=== PATIENT | male | born 1970 | race Caucasian/White ===

== ENCOUNTER 2018-09-01 10:00 | Inpatient (IN) | payer OTHER ==
[2018-09-01 10:38] VITALS: BMI 34.0
--- NOTE | 2018-09-01 12:14 | HP ---
COWS - Scale Resting Pulse: 0= [place] 80 or Below Sweatin= Chills/Flushing Restless Observation: 0= Sits Still Pupil Size: 0= Normal to Room Light Bone or Joint Aches: 2= Severe Diffuse Aches Runny Nose/ Eye Tearin= Nasal Congestion GI Upset > 30mins: 1= Stomach Cramp Tremor Observation: 2= Slight Tremor Visible Yawning Observation: 1= 1-2x During Session Anxiety or Irritability: 2=Irritable/Anxious Goose Flesh Skin: 0=Smooth Skin COWS Score: 10 CIWA Score Nausea/Vomitin-Mild Nausea/No Vomiting Muscle Tremors: 3 Anxiety: 4-Mod. Anxious/Guarded Agitation: 3 Paroxysmal Sweats: No Perspiration Orientation: 1-Uncertain about Date Tacttile Disturbances: 0-None Auditory Disturbances: 0-None Visual Disturbances: 0-None Headache: 1-Very Mild CIWA-Ar Total Score: 13 - Admission Criteria [facility]ASAS Guidelines: Admission for Medically Managed Detox: Requires at least one of the followin. CIWA greater than 12 2. Seizures within the past 24 hours 3. Delirium tremens within the past 24 hours 4. Hallucinations within the past 24 hours 5. Acute intervention needed for co occurring medical disorder 6. Acute intervention needed for co occurring psychiatric disorder 7. Severe withdrawal that cannot be handled at a lower level of care (continued vomiting, continued diarrhea, abnormal vital signs) requiring intravenous medication and/or fluids 8. Patient presents the following: CIWA greater than 12 Admission Criteria Met: Admission criteria met Admission ROS [facility] Chief Complaint: I gotta get off this shit, gotta get clean Allergies/Adverse Reactions: Allergies Allergy/AdvReac Type Severity Reaction Status Date / Time Fish Containing Products Allergy Intermediate Swelling Verified 09/01/18 12:16 History of Present Illness: 48 yo gentleman here for detox from opiates and alcohol - denies seizures but states he has had 'alot' of overdoses and black outs, states he was in a methadone program as well as suboxone in the past - was jailed and taken off the program at various times. Patient making inappropriate comments - patient redirected multiple times. Restless, easily agitated. Exam Limitations: Clinical Condition - Ebola screening Have you traveled outside of the country in the last 21 days: No (N) Have you had contact with anyone from an Ebola affected area: No Have you been sick,other than usual withdrawal symptoms: No Do you have a fever: No - Review of Systems Constitutional: Loss of Appetite, Night Sweats, Changes in sleep EENT: reports: Nose Congestion Respiratory: reports: No Symptoms reported Cardiac: reports: No Symptoms Reported GI: reports: Constipated : reports: Dysuria Musculoskeletal: reports: Back Pain, Muscle Pain Integumentary: reports: No Symptoms Reported Neuro: reports: Headache Endocrine: reports: No Symptoms Reported Hematology: reports: No Symptoms Reported Psychiatric: reports: Judgement Intact, Mood/Affect Appropiate, Anxious Other Systems: Reviewed and Negative Patient History - Patient Medical History Hx Asthma: No Hx Chronic Obstructive Pulmonary Disease (COPD): No Hx Cancer: No Hx Congestive Heart Failure: No Hx Hypertension: No Hx Hypercholesterolemia: No Hx Pacemaker: No HX Cerebrovascular Accident: No Hx Seizures: No Hx Diabetes: No Hx Gastrointestinal Disorders: No Hx Liver Disease: No Hx Genitourinary Disorders: No Hx Sexually Transmitted Disorders: No Hx Renal Disease (ESRD): No Hx Thyroid Disease: No Hx Human Immunodeficiency Virus (HIV): No Hx Hepatitis C: Yes (treated with interferon) Hx Depression: No Hx Suicide Attempt: No Hx Bipolar Disorder: Yes (on meds) Hx Schizophrenia: No - Patient Surgical History Hx Cholecystectomy: Yes (2016) Other Surgical History: parathyroidectomy age 17 - PPD History Previous Implant?: Yes Documented Results: Negative w/o proof Implanted On Prior R Admission?: No PPD to be Administered?: Yes - Reproductive History Patient is a Female of Child Bearing Age (11 -55 yrs old): No (male) - Smoking Cessation Smoking history: Current every day smoker Have you smoked in the past 12 months: Yes Aproximately how many cigarettes per day: 20 Hx Chewing Tobacco Use: No Initiated information on smoking cessation: Yes 'Breaking Loose' booklet given: 09/01/18 (give on floor) - Substance & Tx. History Hx Alcohol Use: No Hx Substance Use: Yes Substance Use Type: Heroin, Marijuana, Opiates Hx Substance Use Treatment: Yes (methadone program, suboxone, detox, rehab) - Substances Abused Non-Rx Methadone Route: Oral Frequency: 1-2 times per week Amount used: 50 mg Age of first use: 22 Date of Last Use: 08/31/18 Heroin Route: Injection Frequency: 3-6 times per week Amount used: 5 bags Age of first use: 21 Date of Last Use: 08/30/18 Marijuana/Hashish Route: Smoking Frequency: Daily Amount used: 3 blunts Age of first use: 13 Date of Last Use: 08/31/18 Alcohol Route: Oral Frequency: Daily Amount used: 1 PINT Age of first use: 10 Date of Last Use: 09/01/18 Family Disease History - Family Disease History Family Disease History: [place]: Mother (, ), Brother (five - (shot, suicide, cancer)), Other: Father (, 'old age'), Mother, Brother, Sister (four living, one ? reason), Son (age seven) Admission Physical Exam [facility] - Vital Signs Vital Signs: Vital Signs - 24 hr 09/01/18 10:36 Temperature 98.0 F Pulse Rate 65 Respiratory 16 Rate Blood Pressure 111/67 - Physical General Appearance: Yes: Nourished, Appropriately Dressed, Obese, Irritable, Anxious HEENTM: Yes: EOMI, Hearing grossly Normal, Normocephalic, Normal Voice, Pharynx Normal Respiratory: Yes: Normal Breath Sounds, No Respiratory Distress Neck: Yes: No masses,lesions,Nodules, Supple Breast: Yes: Breast Exam Deferred Cardiology: Yes: Regular Rhythm, Regular Rate Abdominal: Yes: Soft, Protuberent Genitourinary: Yes: Hesitency Back: Yes: Normal Inspection Musculoskeletal: Yes: full range of Motion, Gait Steady, Back pain, Muscle Pain Extremities: Yes: Normal Inspection, Normal Range of Motion, Non-Tender Neurological: Yes: Fully Oriented, Alert, Motor Strength 5/5, Normal Mood/Affect , Normal Response Integumentary: Yes: Normal Color, Warm, Track Gonzalez (both arms - no abscess noted) Lymphatic: Yes: Within Normal Limits - Diagnostic (1) Alcohol dependence with uncomplicated withdrawal Current Visit: Yes Status: Chronic (2) Opioid dependence with withdrawal Current Visit: Yes Status: Chronic (3) Nicotine dependence Current Visit: Yes Status: Chronic Qualifiers: Nicotine product type: cigarettes Substance use status: uncomplicated Qualified Code(s): F17.210 - Nicotine dependence, cigarettes, uncomplicated (4) Obesity (BMI 30-39.9) Current Visit: Yes Status: Chronic (5) Hepatitis C virus infection resolved after antiviral drug therapy Current Visit: Yes Status: Chronic Cleared for Admission [facility] - Detox or Rehab [facility] Level of Care: Medically Managed Detox Regimen/Protocol: Methadone [facility] Breath Alcohol Content Breath Alcohol Content: 0 Urine Drug Screen - Results Drug Screen Negative: No Urine Drug Screen Results: THC-Marijuana, OPI-Opiates, MTD-Methadone
[2018-09-01] MEDS ORDERED: chlordiazePOXIDE HCL 25 MG CAPSULE PO PRN (12:31)
[2018-09-01] MEDS ORDERED: MENTHOL/PHENOL 1 EACH UD MM PRN (12:31)
[2018-09-01] MEDS ORDERED: guaiFENesin/D-METHORPHAN HB 10 ML UNIT-DOSE CUPS PO PRN (12:31)
[2018-09-01] MEDS ORDERED: IBUPROFEN 400 MG TABLET (FP) PO PRN (12:31)
[2018-09-01] MEDS ORDERED: MAG HYDROX/AL HYDROX/SIMETH 30 ML UNIT-DOSE CUP PO PRN (12:31)
[2018-09-01] MEDS ORDERED: P-EPHED 60MG/TRIPROLIDI 2.5MG TABLET PO PRN (12:31)
[2018-09-01] MEDS ORDERED: MAGNESIUM HYDROX 2400MG/30ML ORAL SUSPENSION 30 ML CUP PO PRN (12:31)
[2018-09-01] MEDS ORDERED: MAGNESIUM CITRATE 300 ML BOTTLE PO PRN (12:31)
[2018-09-01] MEDS ORDERED: LOPERAMIDE HCL 2 MG CAPSULE PO PRN (12:31)
[2018-09-01] MEDS ORDERED: METHADONE HCL 10 MG TABLET (FOR DETOX USE ONLY) PO ONE ×2 (13:30→23:00)
[2018-09-01] MEDS: chlordiazePOXIDE HCL 25 MG CAPSULE PO SCH ×2 (17:29→22:03)
[2018-09-01] MEDS: NICOTINE POLACRILEX 4 MG GUM BUC PRN (17:32)
[2018-09-01] MEDS ORDERED: DIVALPROEX SODIUM 500 MG TABLET E.C. PO ONE (20:36)
--- NOTE | 2018-09-01 20:56 | PN ---
[facility] Progress Note Note: Psychiatric nurse practitioner aviation mechanic note: Call received by RN requesting patient's medication of seroquel 100mg + Depakote 500mg + Gabapentin 800mg HS. This is patient's first admission to detox at [facility]. There are no previous records. Pharmacy claims reviewed and no medications noted. Labs still pending. Gabapentin and depakote WILL NOT be ordered at this time. Will order Seroquel 50mg HS.
[2018-09-01 21:01] LABS: URINE APPEARANCE CLEAR; URINE BILIRUBIN NEGATIVE (<2.0 mg/dL); URINE COLOR YELLOW; URINE GLUCOSE (UA) NEGATIVE (NEGATIVE); URINE KETONE NEGATIVE (NEGATIVE); URINE LEUK ESTERASE NEGATIVE (NEGATIVE); URINE NITRITE NEGATIVE (NEGATIVE); URINE PROTEIN 1+ (NEGATIVE); URINE UROBILINOGEN NEGATIVE mg/dL (0.2-1.0)
[2018-09-01 21:08] LABS: EPI CELLS RARE /HPF (FEW); URINE MUCUS RARE
[2018-09-01] MEDS ORDERED: DIVALPROEX SODIUM 500 MG TABLET E.C. PO SCH (22:00)
[2018-09-01] MEDS ORDERED: MELATONIN 5 MG TABLETS PO PRN (22:00)
[2018-09-01] MEDS ORDERED: QUEtiapine FUMARATE 50 MG TABLET PO SCH (22:00)
[2018-09-01] MEDS: THIAMINE HCL 100 MG TABLET (FP) PO SCH (22:03)
[2018-09-02] MEDS: chlordiazePOXIDE HCL 25 MG CAPSULE PO SCH ×4 (06:26→22:10)
[2018-09-02] MEDS ORDERED: METHADONE HCL 10 MG TABLET (FOR DETOX USE ONLY) PO SCH (10:00)
[2018-09-02] MEDS: ACETAMINOPHEN 325 MG TABLET (FP) PO PRN (10:04)
[2018-09-02] MEDS: PRENATAL VITAMINS W/ FOLIC ACID TABLET (FP) PO SCH (10:04)
[2018-09-02] MEDS: NICOTINE POLACRILEX 4 MG GUM BUC PRN ×3 (10:13→20:47)
--- NOTE | 2018-09-02 10:59 | CONSULT ---
[facility] Psychiatric Consult - Data Date of interview: 09/02/18 Admission source: [facility] Identifying data: 48 y/o male father of 1, , unemployed , refuses to provide his source of support Substance Abuse History: Here for oipioids ETOH, marijuana and nicotine. He is on methadone and Suboxone. He explained that he has been taken off the program because he was in retirement. Seen and evaluated bedside due to lack ooorporation. First admission to [facility]. He has prior Detox admissions. Patient was marginally cooperative with the examiner, he wanted solely to get his psychiatric medciations prescribed. Observable behavior: angry, restless, anxious, hyperviilant, hostile and easily irritable. Refer to addiction counselor note for more detailed drug history Medical History: Generalized body aches, i don't want to be bothered. Tired, fatigued and occasionally snoring with pauses. Records indicate that he was treated for Hep C. past surgical history pof parathyroid surgery and cholescystectomy Psychiatric History: I want my psychiatric medications, I am Bipolar. I take Seroquel, Depakote, Gabapentin Physical/Sexual Abuse/Trauma History: Unable to assess , patient is uncooperative Additional Comment: Past history of retirement time. No dditional information was obtained Mental Status Exam - Mental Status Exam Cognitive Function: Fair Patient Appearance: Unkempt, Disheveled Mood: Angry, Hostile, Suspicious, Nervous, Irritable Affect: Inappropriate, Labile Patient Behavior: Restless, Sedated, Fatigued, Uncooperative, Suspicious, Impulsive, Talkative, Resitive to Care Speech Pattern: Slurred, Excessive, Pressured Voice Loudness: Severely Loud Thought Process: Circumstantial Thought Disorder: Not Present Hallucinations: Denies Suicidal Ideation: Denies Homicidal Ideation: Denies Insight/Judgement: Poor Appetite: Fair (Unable to assess sleep disturbances , perceptual distortion, though denies suicide ideation or homicidal ideation , denies psychosis , patient was evaluated bedside ) Psychiatric Findings - Problem List (Topaz 1, 2,3) (1) Bipolar 1 disorder Current Visit: Yes Status: Acute (2) Alcohol dependence with uncomplicated withdrawal Current Visit: Yes Status: Chronic (3) Nicotine dependence Current Visit: Yes Status: Chronic Qualifiers: Nicotine product type: cigarettes Substance use status: uncomplicated Qualified Code(s): F17.210 - Nicotine dependence, cigarettes, uncomplicated (4) Opioid dependence with withdrawal Current Visit: Yes Status: Chronic - Initial Treatment Plan Initial Treatment Plan: Continue Detox treatment. Blood depakote level. Seroquel 100 mg po q hs. Monitor response
[2018-09-02 11:19] LABS: ALBUMIN 3.4 g/dl (3.4-5.0); ALK PHOS 60 U/L (45-117); ANION GAP 7 MMOL/L (8-16); BILIRUBIN,TOTAL 0.5 mg/dL (0.2-1); BLOOD UREA NITROGEN 20 mg/dL (7-18); CALCIUM 8.8 mg/dL (8.5-10.1); CHLORIDE 110 mmol/L (98-107); CO2 29 mmol/L (21-32); CREATININE 1.1 mg/dL (0.55-1.3); GLUCOSE,RANDOM 91 mg/dL (74-106); POTASSIUM 4.3 mmol/L (3.5-5.1); SGOT/AST 17 U/L (15-37); SGPT/ALT 22 U/L (13-61); SODIUM 145 mmol/L (136-145); TOT PROT 6.2 g/dl (6.4-8.2)
[2018-09-02 11:36] LABS: MCH 28.8 pg (25.7-33.7); MCHC 33.3 g/dl (32.0-35.9); MEAN CELL VOLUME 86.2 fl (80-96); MEAN PLT VOLUME 8.6 fl (7.5-11.1); PLATELET COUNT 197 K/MM3 (134-434); RBC 4.52 M/mm3 (4.00-5.60); WHITE BLOOD COUNT 6.2 K/mm3 (4.0-10.0)
--- NOTE | 2018-09-02 13:21 | PN ---
S CIWA - CIWA Score Nausea/Vomitin Muscle Tremors: 4-Moderate,w/Arms Extend Anxiety: 4-Mod. Anxious/Guarded Agitation: 4-Moderately Restless Paroxysmal Sweats: 3 Orientation: 0-Oriented Tacttile Disturbances: 0-None Auditory Disturbances: 0-None Visual Disturbances: 0-None Headache: 0-None Present CIWA-Ar Total Score: 17 BHS COWS - Scale Resting Pulse: 0= [place] 80 or Below Sweatin= Chills/Flushing Restless Observation: 3= Extraneous Movement Pupil Size: 1= Pupils >than Normal Bone or Joint Aches: 2= Severe Diffuse Aches Runny Nose/ Eye Tearin= Runny Nose/Eyes GI Upset > 30mins: 3= Vomiting/Diarrhea Tremor Observation of Outstretched Hands: 2= Slight Tremor Visible Yawning Observation: 0= None Anxiety or Irritability: 2=Irritable/Anxious Goose Flesh Skin: 0=Smooth Skin COWS Score: 16 BHS Progress Note (SOAP) Subjective: Stomach ache, diarrhea. Patient reported that he fell this morning after he accidentally spilled juice in his room close to bathroom door. As per patient, he fell but broke the fall and landed on his right side. He denied any injury, pain or hitting his head. Spinner Tender and assigned RN spoke with patient regarding need for CT Scan of brain but patient refused stating that he is fine and that he is 100% sure that he never hit his head. Patient signed refusal form to go to ER. Objective: 09/02/18 13:20 Last Vital Signs Temp Pulse Resp BP Pulse Ox 97.4 F L 68 18 127/82 09/02/18 12:25 09/02/18 12:25 09/02/18 12:25 09/02/18 12:25 PE: Head: AT/NC Extrem: FROM, no injury or bruise noted Laboratory Tests 09/01/18 09/02/18 09/02/18 14:46 07:35 07:35 WBC 6.2 RBC 4.52 Hgb 13.0 Hct 39.0 MCV 86.2 MCH 28.8 MCHC 33.3 RDW 14.0 Plt Count 197 MPV 8.6 Sodium 145 Potassium 4.3 Chloride 110 H Carbon Dioxide 29 Anion Gap 7 L BUN 20 H Creatinine 1.1 Creat Clearance w eGFR > 60 Random Glucose 91 Calcium 8.8 Total Bilirubin 0.5 AST 17 ALT 22 Alkaline Phosphatase 60 Total Protein 6.2 L Albumin 3.4 Urine Color Yellow Urine Appearance Clear Urine pH 7.0 Ur Specific [place] 1.017 Urine Protein 1+ H Urine Glucose (UA) Negative Urine Ketones Negative Urine Blood Negative Urine Nitrite Negative Urine Bilirubin Negative Urine Urobilinogen Negative Ur Leukocyte Esterase Negative Urine WBC (Auto) 5 Urine RBC (Auto) 1 Ur Epithelial Cells Rare Urine Mucus Rare RPR Titer 09/02/18 07:35 WBC RBC Hgb Hct MCV MCH MCHC RDW Plt Count MPV Sodium Potassium Chloride Carbon Dioxide Anion Gap BUN Creatinine Creat Clearance w eGFR Random Glucose Calcium Total Bilirubin AST ALT Alkaline Phosphatase Total Protein Albumin Urine Color Urine Appearance Urine pH Ur Specific [place] Urine Protein Urine Glucose (UA) Urine Ketones Urine Blood Urine Nitrite Urine Bilirubin Urine Urobilinogen Ur Leukocyte Esterase Urine WBC (Auto) Urine RBC (Auto) Ur Epithelial Cells Urine Mucus RPR Titer Nonreactive Labs reviewed: bun 20, abnormal UA Assessment: 09/02/18 13:21 Withdrawal symptoms Noted with azotemia and abnormal UA Plan: Continue detox Monitor vital signs including mental status, transfer patient to ER if any changes in mental status due to fall, though patient denies hitting head. Azotemia: encouraged PO water intake Abnormal UA: repeat UA
--- NOTE | 2018-09-02 19:40 | EKG ---
Test Reason : Blood Pressure : / mmHG Vent. Rate : 055 BPM Atrial Rate : 055 BPM P-R Int : 182 ms QRS Dur : 104 ms QT Int : 442 ms P-R-T Axes : 041 -04 028 degrees QTc Int : 422 ms SINUS BRADYCARDIA WITH OCCASIONAL ABERRANTLY CODUCTED COMPLEX OTHERWISE NORMAL ECG NO PREVIOUS ECGS AVAILABLE Confirmed by JENNY ARIAS, JV ([id number]) on 09/02/2018 7:40:06 PM Referred By: Confirmed By:JV ALVARADO MD
[2018-09-02] MEDS ORDERED: QUEtiapine FUMARATE 100 MG TABLET (FP) PO SCH (22:00)
[2018-09-02] MEDS: THIAMINE HCL 100 MG TABLET (FP) PO SCH (22:09)
[2018-09-03] MEDS: chlordiazePOXIDE HCL 25 MG CAPSULE PO SCH ×2 (05:46→10:22)
[2018-09-03] MEDS: ACETAMINOPHEN 325 MG TABLET (FP) PO PRN (05:48)
[2018-09-03] MEDS ORDERED: METHADONE HCL 5 MG TABLET (FOR DETOX USE ONLY) PO SCH (10:00)
[2018-09-03 10:18] VITALS: BP 124/68; PULSE 57; TEMP 98.2
[2018-09-03] MEDS: PRENATAL VITAMINS W/ FOLIC ACID TABLET (FP) PO SCH (10:22)
--- NOTE | 2018-09-03 13:16 | PN ---
[facility] CIWA - CIWA Score Nausea/Vomitin-No Nausea/No Vomiting Muscle Tremors: None Anxiety: 4-Mod. Anxious/Guarded Agitation: 3 Paroxysmal Sweats: No Perspiration Orientation: 0-Oriented Tacttile Disturbances: 2-Mild Itch/Numbness/Burn Auditory Disturbances: 0-None Visual Disturbances: 2-Mild Sensitivity Headache: 0-None Present CIWA-Ar Total Score: 11 S COWS - Scale Resting Pulse: 0= [place] 80 or Below Sweatin= Chills/Flushing Restless Observation: 0= Sits Still Pupil Size: 0= Normal to Room Light Bone or Joint Aches: 2= Severe Diffuse Aches Runny Nose/ Eye Tearin= None GI Upset > 30mins: 0= None Tremor Observation of Outstretched Hands: 0= None Yawning Observation: 1= 1-2x During Session Anxiety or Irritability: 2=Irritable/Anxious Goose Flesh Skin: 3=Piloerection COWS Score: 9 S Progress Note (SOAP) Subjective: Body Aches, Anxious, Interrupted Sleep. Objective: PATIENT A & O X 3, OBSERVED AMBULATING ON UNIT. IN NO ACUTE DISTRESS. 09/03/18 13:14 Vital Signs Temperature 98.2 F 09/03/18 10:18 Pulse Rate 57 L 09/03/18 10:18 Respiratory Rate 18 09/03/18 10:18 Blood Pressure 124/68 09/03/18 10:18 O2 Sat by Pulse Oximetry (%) Laboratory Tests 09/01/18 09/02/18 09/02/18 14:46 07:35 07:35 WBC 6.2 RBC 4.52 Hgb 13.0 Hct 39.0 MCV 86.2 MCH 28.8 MCHC 33.3 RDW 14.0 Plt Count 197 MPV 8.6 Sodium 145 Potassium 4.3 Chloride 110 H Carbon Dioxide 29 Anion Gap 7 L BUN 20 H Creatinine 1.1 Creat Clearance w eGFR > 60 Random Glucose 91 Calcium 8.8 Total Bilirubin 0.5 AST 17 ALT 22 Alkaline Phosphatase 60 Total Protein 6.2 L Albumin 3.4 Urine Color Yellow Urine Appearance Clear Urine pH 7.0 Ur Specific [place] 1.017 Urine Protein 1+ H Urine Glucose (UA) Negative Urine Ketones Negative Urine Blood Negative Urine Nitrite Negative Urine Bilirubin Negative Urine Urobilinogen Negative Ur Leukocyte Esterase Negative Urine WBC (Auto) 5 Urine RBC (Auto) 1 Ur Epithelial Cells Rare Urine Mucus Rare Valproic Acid RPR Titer 09/02/18 09/03/18 07:35 08:00 WBC RBC Hgb Hct MCV MCH MCHC RDW Plt Count MPV Sodium Potassium Chloride Carbon Dioxide Anion Gap BUN Creatinine Creat Clearance w eGFR Random Glucose Calcium Total Bilirubin AST ALT Alkaline Phosphatase Total Protein Albumin Urine Color Urine Appearance Urine pH Ur Specific [place] Urine Protein Urine Glucose (UA) Urine Ketones Urine Blood Urine Nitrite Urine Bilirubin Urine Urobilinogen Ur Leukocyte Esterase Urine WBC (Auto) Urine RBC (Auto) Ur Epithelial Cells Urine Mucus Valproic Acid 65.5 RPR Titer Nonreactive LABS NOTED. Assessment: 09/03/18 13:15 WITHDRAWAL SYMPTOMS. Plan: CONTINUE DETOX.
--- NOTE | 2018-09-03 13:20 | DS ---
[facility] Detox Discharge Summary Admission Date: 09/01/18 Discharge Date: 09/03/18 - History Present History: Alcohol Dependence, Opioid Dependence Additional Comments: PATIENT DOES NOT WISH TO REMAIN TO COMPLETE DETOX REGIMEN. RISKS OF LEAVING DETOX UNIT AGAINST MEDICAL ADVICE AND PRIOR TO COMPLETION OF DETOX REGIMEN EXPLAINED TO PATIENT. PATIENT ADVISED TO GO IMMEDIATELY TO NEAREST ER SHOULD ANY INTOLERABLE DETOX SYMPTOMS DEVELOP AT ANY TIME. PATIENT VERBALIZED UNDERSTANDING OF ALL INFORMATION / RECOMMENDATIONS PRESENTED TO HIM PRIOR TO DEPARTURE FROM DETOX UNIT. PATIENT LEFT DETOX UNIT IN STABLE MEDICAL CONDITION. Pertinent Past History: Hep C (Treated), Bipolar I Disorder, Nicotine Dependence. - Physical Exam Results Vital Signs: Vital Signs Temperature 98.2 F 09/03/18 10:18 Pulse Rate 57 L 09/03/18 10:18 Respiratory Rate 18 09/03/18 10:18 Blood Pressure 124/68 09/03/18 10:18 O2 Sat by Pulse Oximetry (%) Pertinent Admission Physical Exam Findings: WITHDRAWAL SYMPTOMS. Laboratory Tests 09/01/18 09/02/18 09/02/18 14:46 07:35 07:35 WBC 6.2 RBC 4.52 Hgb 13.0 Hct 39.0 MCV 86.2 MCH 28.8 MCHC 33.3 RDW 14.0 Plt Count 197 MPV 8.6 Sodium 145 Potassium 4.3 Chloride 110 H Carbon Dioxide 29 Anion Gap 7 L BUN 20 H Creatinine 1.1 Creat Clearance w eGFR > 60 Random Glucose 91 Calcium 8.8 Total Bilirubin 0.5 AST 17 ALT 22 Alkaline Phosphatase 60 Total Protein 6.2 L Albumin 3.4 Urine Color Yellow Urine Appearance Clear Urine pH 7.0 Ur Specific [place] 1.017 Urine Protein 1+ H Urine Glucose (UA) Negative Urine Ketones Negative Urine Blood Negative Urine Nitrite Negative Urine Bilirubin Negative Urine Urobilinogen Negative Ur Leukocyte Esterase Negative Urine WBC (Auto) 5 Urine RBC (Auto) 1 Ur Epithelial Cells Rare Urine Mucus Rare Valproic Acid RPR Titer 09/02/18 09/03/18 07:35 08:00 WBC RBC Hgb Hct MCV MCH MCHC RDW Plt Count MPV Sodium Potassium Chloride Carbon Dioxide Anion Gap BUN Creatinine Creat Clearance w eGFR Random Glucose Calcium Total Bilirubin AST ALT Alkaline Phosphatase Total Protein Albumin Urine Color Urine Appearance Urine pH Ur Specific [place] Urine Protein Urine Glucose (UA) Urine Ketones Urine Blood Urine Nitrite Urine Bilirubin Urine Urobilinogen Ur Leukocyte Esterase Urine WBC (Auto) Urine RBC (Auto) Ur Epithelial Cells Urine Mucus Valproic Acid 65.5 RPR Titer Nonreactive LABS NOTED. - Treatment Hospital Course: Detoxed Safely - Medication Discharge Medications: Ambulatory Orders Divalproex [Depakote -] 500 mg PO BID 09/01/18 Gabapentin 800 mg PO DAILY 09/01/18 - Diagnosis (1) Alcohol dependence with uncomplicated withdrawal Status: Acute (2) Opioid dependence with withdrawal Status: Acute (3) Bipolar 1 disorder Status: Chronic (4) Nicotine dependence Status: Chronic Qualifiers: Nicotine product type: cigarettes Substance use status: uncomplicated Qualified Code(s): F17.210 - Nicotine dependence, cigarettes, uncomplicated (5) Hepatitis C virus infection resolved after antiviral drug therapy Status: Chronic (6) Obesity (BMI 30-39.9) Status: Chronic - AMA Did Patient Leave Against Medical Advice: Yes (PATIENT DID NOT WISH TO REMAIN TO COMPLETE DETOX REGIMEN.)
[2018-09-03] MEDS ORDERED: chlordiazePOXIDE 5 MG CAPSULE PO SCH (17:00)
[2018-09-04] MEDS ORDERED: METHADONE HCL 10 MG TABLET (FOR DETOX USE ONLY) PO SCH (10:00)
[2018-09-04] MEDS ORDERED: chlordiazePOXIDE HCL 10 MG CAPSULE PO SCH (17:00)
[2018-09-05] MEDS ORDERED: METHADONE HCL 5 MG TABLET (FOR DETOX USE ONLY) PO SCH (06:00)
[2018-09-05] MEDS ORDERED: METHADONE HCL 10 MG TABLET (FOR DETOX USE ONLY) PO SCH (10:00)
[2018-09-06] MEDS ORDERED: METHADONE HCL 5 MG TABLET (FOR DETOX USE ONLY) PO SCH (06:00)
== END 2018-09-03 11:10 | disposition left against medical advice (07) | DRG 770 ==
LOC: YASAS 10:00 → Y3N 12:42 → Y6N 09-02 20:30
PROVIDERS: ADMIT Neuromusculoskeletal Medicine & OMM; ATTEND Neuromusculoskeletal Medicine & OMM
PROC: HZ2ZZZZ Detoxification Services for Substance Abuse Treatment (ICD-10-PCS; principal; 2018-09-01)
DX: F11.23 Opioid dependence with withdrawal (principal); F10.230 Alcohol dependence with withdrawal, uncomplicated; F12.20 Cannabis dependence, uncomplicated; F17.210 Nicotine dependence, cigarettes, uncomplicated; F31.89 Other bipolar disorder; B18.2 Chronic viral hepatitis C; R79.89 Other specified abnormal findings of blood chemistry; R82.90 Unspecified abnormal findings in urine; E66.9 Obesity, unspecified; Z68.34 Body mass index [BMI] 34.0-34.9, adult; Z91.013 Allergy to seafood; Z59.0 Homelessness
CPT/HCPCS: 36415; 80053; 80164; 81003; 81015; 85027; 86593; 93005; 93010

== ENCOUNTER 2018-09-30 15:46 | Inpatient (IN) | payer OTHER ==
[2018-09-30 16:08] VITALS: BMI 34.5
--- NOTE | 2018-09-30 17:59 | HP ---
COWS - Scale Resting Pulse: 0= [place] 80 or Below Sweatin= Chills/Flushing Restless Observation: 3= Extraneous Movement Pupil Size: 1= Pupils >than Normal Bone or Joint Aches: 2= Severe Diffuse Aches Runny Nose/ Eye Tearin= Runny Nose/Eyes GI Upset > 30mins: 3= Vomiting/Diarrhea Tremor Observation: 2= Slight Tremor Visible Yawning Observation: 1= 1-2x During Session Anxiety or Irritability: 2=Irritable/Anxious Goose Flesh Skin: 0=Smooth Skin COWS Score: 17 CIWA Score - Admission Criteria OASAS Guidelines: Admission for Medically Managed Detox: Requires at least one of the followin. CIWA greater than 12 2. Seizures within the past 24 hours 3. Delirium tremens within the past 24 hours 4. Hallucinations within the past 24 hours 5. Acute intervention needed for co occurring medical disorder 6. Acute intervention needed for co occurring psychiatric disorder 7. Severe withdrawal that cannot be handled at a lower level of care (continued vomiting, continued diarrhea, abnormal vital signs) requiring intravenous medication and/or fluids 8. Admission ROS S - [facility] Chief Complaint: i need help to stop using heroin,cocaine and marijuana Allergies/Adverse Reactions: Allergies Allergy/AdvReac Type Severity Reaction Status Date / Time Fish Containing Products Allergy Intermediate Swelling Verified 09/30/18 18:12 haldol AdvReac Uncoded 09/30/18 18:12 History of Present Illness: this 48 years old male with heroin,cocaine and marijuana dependence seeking detox,withdrawal symptom,last detox [facility] 09/01/18 to 05/04/19 not completed seen in [facility] receiving ativan hypertension,hepatitis c treated nicotine dependence obesity bipolar disorder longest period sobriety 8 months Exam Limitations: No Limitations - Ebola screening Have you been sick,other than usual withdrawal symptoms: No - Review of Systems Constitutional: Chills, Malaise, Night Sweats, Changes in sleep EENT: reports: Tearing, Nose Congestion Respiratory: reports: No Symptoms reported Cardiac: reports: No Symptoms Reported GI: reports: Diarrhea, Nausea, Vomiting, Abdominal cramping : reports: No Symptoms Reported Musculoskeletal: reports: Back Pain, Joint Pain, Muscle Pain, Joint Stiffness Integumentary: reports: Dryness Neuro: reports: Headache, Tremors Endocrine: reports: No Symptoms Reported Hematology: reports: No Symptoms Reported Psychiatric: reports: No Sypmtoms Reported, Judgement Intact, Mood/Affect Appropiate, Orientated x3, other (bipolar disorder) Other Systems: Reviewed and Negative Patient History - Patient Medical History Hx Anemia: No Hx Asthma: No Hx Chronic Obstructive Pulmonary Disease (COPD): No Hx Cancer: No Hx Cardiac Disorders: No Hx Congestive Heart Failure: No Hx Hypertension: Yes (non compliance,no med) Hx Hypercholesterolemia: No Hx Pacemaker: No HX Cerebrovascular Accident: No Hx Seizures: No Hx Dementia: No Hx Diabetes: No Hx Gastrointestinal Disorders: No Hx Liver Disease: No Hx Genitourinary Disorders: No Hx Sexually Transmitted Disorders: No Hx Renal Disease (ESRD): No Hx Thyroid Disease: No Hx Human Immunodeficiency Virus (HIV): No (last 07/01 negative) Hx Hepatitis C: Yes (treated with interferon) Hx Depression: No Hx Suicide Attempt: No Hx Bipolar Disorder: Yes (no med) Hx Schizophrenia: No Other Medical History: no suicidal,no homicidal - Patient Surgical History Past Surgical History: No Hx Cholecystectomy: Yes (2016 open in [place]) Other Surgical History: parathyroidectomy age 17 - PPD History Previous Implant?: Yes Date: 09/03/18 Results: no reading PPD to be Administered?: Yes - Smoking Cessation Smoking history: Current every day smoker Have you smoked in the past 12 months: Yes Aproximately how many cigarettes per day: 20 Hx Chewing Tobacco Use: No Initiated information on smoking cessation: Yes 'Breaking Loose' booklet given: 09/30/18 - Substance & Tx. History Hx Alcohol Use: No Hx Substance Use: Yes Substance Use Type: Cocaine, Heroin, Marijuana Hx Substance Use Treatment: Yes ([facility] 09/01/18 to 09/03/18 not completed) - Substances Abused Heroin Route: Injection Frequency: Daily Amount used: 10 bags Age of first use: 21 Date of Last Use: 09/29/18 Cocaine Route: Injection Frequency: 1-3 times last 30 days Amount used: 20$ Age of first use: 16 Date of Last Use: 09/28/18 Marijuana/Hashish Route: Smoking Frequency: 3-6 times per week Amount used: 5$ Age of first use: 15 Date of Last Use: 09/27/18 Family Disease History - Family Disease History Family Disease History: CA: Mother (, ), Brother (five - (shot, suicide, cancer)), Other: Father (, 'old age'), Mother, Brother, Sister (four living, one ? reason), Son (age seven) Admission Physical Exam [facility] - Vital Signs Vital Signs: Vital Signs - 24 hr 09/30/18 16:02 Temperature 99.0 F Pulse Rate 60 Respiratory 18 Rate Blood Pressure 142/98 - Physical General Appearance: Yes: Moderate Distress, Obese, Tremorous, Irritable, Sweating, Anxious HEENTM: Yes: Normal ENT Inspection, BIPIN, Pharynx Normal, Other (surgical scar in neck anterior) Respiratory: Yes: Lungs Clear, Normal Breath Sounds, No Respiratory Distress Neck: Yes: Supple, Trachea in good position, Other (surgical scar) Breast: Yes: Within Normal Limits Cardiology: Yes: Within Normal Limits, Regular Rhythm, Regular Rate, S1, S2 Abdominal: Yes: Within Normal Limits, Normal Bowel Sounds, Non Tender, Flat, Soft Genitourinary: Yes: Within Normal Limits Back: Yes: Muscle Spasm Musculoskeletal: Yes: full range of Motion, Back pain, Joint Stiffness, Muscle Pain Extremities: Yes: Tremors Neurological: Yes: shorer II-XII NML intact, Fully Oriented, Alert, Motor Strength 5/5 Integumentary: Yes: Dry Lymphatic: Yes: Within Normal Limits - Diagnostic (1) Opioid dependence with withdrawal Current Visit: No Status: Acute (2) Bipolar 1 disorder Current Visit: No Status: Chronic (3) Cannabis dependence Current Visit: No Status: Chronic (4) Hepatitis C virus infection resolved after antiviral drug therapy Current Visit: No Status: Chronic (5) Nicotine dependence Current Visit: No Status: Chronic Qualifiers: Nicotine product type: cigarettes Substance use status: uncomplicated Qualified Code(s): F17.210 - Nicotine dependence, cigarettes, uncomplicated (6) Obesity (BMI 30-39.9) Current Visit: No Status: Chronic (7) Cocaine dependence Current Visit: Yes Status: Acute Cleared for Admission [facility] - Detox or Rehab [facility] Level of Care: Medically Managed Detox Regimen/Protocol: Methadone [facility] Breath Alcohol Content Breath Alcohol Content: 0 Urine Drug Screen - Results Drug Screen Negative: No Urine Drug Screen Results: THC-Marijuana, SHAUNA-Cocaine, OPI-Opiates, BZO- Benzodiazepines Inpatient Rehab Admission - Rehab Decision to Admit Inpatient rehab admission?: No
[2018-09-30] MEDS ORDERED: MAG HYDROX/AL HYDROX/SIMETH 30 ML UNIT-DOSE CUP PO PRN (18:14)
[2018-09-30] MEDS ORDERED: guaiFENesin/D-METHORPHAN HB 10 ML UNIT-DOSE CUPS PO PRN (18:14)
[2018-09-30] MEDS ORDERED: MAGNESIUM CITRATE 300 ML BOTTLE PO PRN (18:14)
[2018-09-30] MEDS ORDERED: IBUPROFEN 400 MG TABLET (FP) PO PRN (18:14)
[2018-09-30] MEDS ORDERED: NICOTINE POLACRILEX 2 MG GUM BC PRN (18:14)
[2018-09-30] MEDS ORDERED: MAGNESIUM HYDROX 2400MG/30ML ORAL SUSPENSION 30 ML CUP PO PRN (18:14)
[2018-09-30] MEDS ORDERED: LOPERAMIDE HCL 2 MG CAPSULE PO PRN (18:14)
[2018-09-30] MEDS ORDERED: ACETAMINOPHEN 325 MG TABLET (FP) PO PRN (18:14)
[2018-09-30] MEDS ORDERED: P-EPHED 60MG/TRIPROLIDI 2.5MG TABLET PO PRN (18:14)
[2018-09-30] MEDS ORDERED: MENTHOL/PHENOL 1 EACH UD MM PRN (18:14)
[2018-09-30] MEDS ORDERED: METHADONE HCL 10 MG TABLET (FOR DETOX USE ONLY) PO ONE ×2 (19:00→23:00)
[2018-09-30] MEDS: diazePAM 5 MG TABLET PO PRN (20:14)
[2018-09-30] MEDS: NICOTINE 21 MG/24 HOURS TOPICAL PATCH TD SCH (20:18)
[2018-09-30] MEDS ORDERED: MELATONIN 5 MG TABLETS PO PRN (22:00)
[2018-09-30] MEDS: THIAMINE HCL 100 MG TABLET (FP) PO SCH (22:13)
[2018-09-30] MEDS: cloNIDine HCL 0.1 MG TABLET PO SCH (22:13)
[2018-09-30] MEDS: CYCLOBENZAPRINE HCL 10 MG TABLET (FP) PO PRN (22:13)
[2018-10-01] MEDS ORDERED: METHADONE HCL 10 MG TABLET (FOR DETOX USE ONLY) PO ONE (10:00)
[2018-10-01] MEDS: cloNIDine HCL 0.1 MG TABLET PO SCH ×2 (10:27→22:37)
[2018-10-01] MEDS: NICOTINE 21 MG/24 HOURS TOPICAL PATCH TD SCH (10:27)
[2018-10-01] MEDS: PRENATAL VITAMINS W/ FOLIC ACID TABLET (FP) PO SCH (10:32)
[2018-10-01 11:18] LABS: HEMATOCRIT 42.9 % (35.4-49); HEMOGLOBIN 14.6 GM/dL (11.7-16.9); MCH 28.3 pg (25.7-33.7); MEAN CELL VOLUME 83.3 fl (80-96); MEAN PLT VOLUME 8.6 fl (7.5-11.1); PLATELET COUNT 213 K/MM3 (134-434); RBC 5.15 M/mm3 (4.00-5.60); RDW 14.4 % (11.9-15.9); WHITE BLOOD COUNT 5.9 K/mm3 (4.0-10.0)
[2018-10-01 11:29] LABS: ALBUMIN 3.9 g/dl (3.4-5.0); ALK PHOS 76 U/L (45-117); ANION GAP 8 MMOL/L (8-16); BILIRUBIN,TOTAL 1.6 mg/dL (0.2-1); BLOOD UREA NITROGEN 19 mg/dL (7-18); CALCIUM 8.7 mg/dL (8.5-10.1); CHLORIDE 104 mmol/L (98-107); CO2 25 mmol/L (21-32); CREATININE 1.4 mg/dL (0.55-1.3); GLUCOSE,RANDOM 168 mg/dL (74-106); POTASSIUM 3.8 mmol/L (3.5-5.1); SGOT/AST 16 U/L (15-37); SGPT/ALT 22 U/L (13-61); SODIUM 137 mmol/L (136-145); TOT PROT 6.7 g/dl (6.4-8.2)
--- NOTE | 2018-10-01 12:08 | PN ---
BHS COWS - Scale Resting Pulse: 0= [place] 80 or Below Sweatin=Flushed/Facial Moisture Restless Observation: 1= Difficult to Sit Still Pupil Size: 0= Normal to Room Light Bone or Joint Aches: 1= Mild Discomfort Runny Nose/ Eye Tearin= Nasal Congestion GI Upset > 30mins: 1= Stomach Cramp Tremor Observation of Outstretched Hands: 1= Tremor Sp[place], Not Seen Yawning Observation: 1= 1-2x During Session Anxiety or Irritability: 2=Irritable/Anxious Goose Flesh Skin: 0=Smooth Skin COWS Score: 10 BHS Progress Note (SOAP) Subjective: diarrhea sweats shakes body aches Objective: 10/01/18 12:07 Vital Signs Temperature 98.2 F 10/01/18 10:02 Pulse Rate 55 L 10/01/18 10:02 Respiratory Rate 18 10/01/18 10:02 Blood Pressure 105/67 10/01/18 10:02 O2 Sat by Pulse Oximetry (%) Laboratory Tests 10/01/18 10/01/18 10/01/18 07:50 07:50 07:50 WBC 5.9 RBC 5.15 Hgb 14.6 Hct 42.9 MCV 83.3 MCH 28.3 MCHC 34.0 RDW 14.4 Plt Count 213 MPV 8.6 Sodium 137 Potassium 3.8 Chloride 104 Carbon Dioxide 25 Anion Gap 8 BUN 19 H Creatinine 1.4 H Creat Clearance w eGFR 53.86 Random Glucose 168 H Calcium 8.7 Total Bilirubin 1.6 H AST 16 ALT 22 Alkaline Phosphatase 76 Total Protein 6.7 Albumin 3.9 RPR Titer Nonreactive aaox3 ambulating no acute distress Assessment: 10/01/18 12:07 withdrawal sx Plan: continue detox increase fluids
[2018-10-01] MEDS: THIAMINE HCL 100 MG TABLET (FP) PO SCH (22:37)
[2018-10-01] MEDS: CYCLOBENZAPRINE HCL 10 MG TABLET (FP) PO PRN (22:37)
[2018-10-01] MEDS: diazePAM 5 MG TABLET PO PRN (22:37)
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
[2018-10-02] MEDS ORDERED: METHADONE HCL 5 MG TABLET (FOR DETOX USE ONLY) PO ONE (10:00)
[2018-10-02] MEDS: NICOTINE 21 MG/24 HOURS TOPICAL PATCH TD SCH (10:30)
[2018-10-02] MEDS: cloNIDine HCL 0.1 MG TABLET PO SCH ×2 (10:31→22:36)
[2018-10-02] MEDS: PRENATAL VITAMINS W/ FOLIC ACID TABLET (FP) PO SCH (10:31)
--- NOTE | 2018-10-02 11:02 | PN ---
BHS COWS - Scale Resting Pulse: 0= [place] 80 or Below Sweatin=Flushed/Facial Moisture Restless Observation: 1= Difficult to Sit Still Pupil Size: 0= Normal to Room Light Bone or Joint Aches: 2= Severe Diffuse Aches Runny Nose/ Eye Tearin= Nasal Congestion GI Upset > 30mins: 0= None Tremor Observation of Outstretched Hands: 2= Slight Tremor Visible Yawning Observation: 2= >3x During Session Anxiety or Irritability: 2=Irritable/Anxious Goose Flesh Skin: 0=Smooth Skin COWS Score: 12 BHS Progress Note (SOAP) Subjective: interrupted sleep agitation sweats body aches shakes Objective: 10/02/18 11:01 Vital Signs Temperature 98.2 F 10/02/18 10:14 Pulse Rate 56 L 10/02/18 10:14 Respiratory Rate 18 10/02/18 10:14 Blood Pressure 113/83 10/02/18 10:14 O2 Sat by Pulse Oximetry (%) Laboratory Tests 10/01/18 10/01/18 10/01/18 07:50 07:50 07:50 WBC 5.9 RBC 5.15 Hgb 14.6 Hct 42.9 MCV 83.3 MCH 28.3 MCHC 34.0 RDW 14.4 Plt Count 213 MPV 8.6 Sodium 137 Potassium 3.8 Chloride 104 Carbon Dioxide 25 Anion Gap 8 BUN 19 H Creatinine 1.4 H Creat Clearance w eGFR 53.86 Random Glucose 168 H Calcium 8.7 Total Bilirubin 1.6 H AST 16 ALT 22 Alkaline Phosphatase 76 Total Protein 6.7 Albumin 3.9 RPR Titer Nonreactive HIV 1&2 Antibody Screen HIV P24 Antigen 10/01/18 07:50 WBC RBC Hgb Hct MCV MCH MCHC RDW Plt Count MPV Sodium Potassium Chloride Carbon Dioxide Anion Gap BUN Creatinine Creat Clearance w eGFR Random Glucose Calcium Total Bilirubin AST ALT Alkaline Phosphatase Total Protein Albumin RPR Titer HIV 1&2 Antibody Screen Negative HIV P24 Antigen Negative aaox3 ambulating no acute distress Assessment: 10/02/18 11:02 withdrawal sx Plan: continue detox increase fluids
[2018-10-02] MEDS: GABAPENTIN 400 MG CAPSULE (FP) PO SCH ×2 (12:20→22:36)
[2018-10-02] MEDS: DIVALPROEX SODIUM 500 MG TABLET E.C. PO SCH ×2 (12:20→22:36)
[2018-10-02] MEDS: diazePAM 5 MG TABLET PO PRN (14:54)
[2018-10-02] MEDS: QUEtiapine FUMARATE 100 MG TABLET (FP) PO SCH (22:36)
[2018-10-02] MEDS: THIAMINE HCL 100 MG TABLET (FP) PO SCH (22:37)
[2018-10-03] MEDS ORDERED: METHADONE HCL 5 MG TABLET (FOR DETOX USE ONLY) PO ONE (10:00)
[2018-10-03] MEDS: NICOTINE 21 MG/24 HOURS TOPICAL PATCH TD SCH (10:33)
[2018-10-03] MEDS: cloNIDine HCL 0.1 MG TABLET PO SCH ×2 (10:34→22:25)
[2018-10-03] MEDS: PRENATAL VITAMINS W/ FOLIC ACID TABLET (FP) PO SCH (10:34)
[2018-10-03] MEDS: GABAPENTIN 400 MG CAPSULE (FP) PO SCH ×2 (10:34→22:25)
[2018-10-03] MEDS: DIVALPROEX SODIUM 500 MG TABLET E.C. PO SCH ×2 (10:34→22:25)
--- NOTE | 2018-10-03 13:39 | PN ---
BHS Progress Note (SOAP) Subjective: sweats anxiety feeling better Objective: 10/03/18 13:39 Vital Signs Temperature 97.7 F 10/03/18 09:56 Pulse Rate 65 10/03/18 09:56 Respiratory Rate 18 10/03/18 09:56 Blood Pressure 113/69 10/03/18 09:56 O2 Sat by Pulse Oximetry (%) aaox3 ambulating no acute distress Assessment: 10/03/18 13:39 mild withdrawal sx Plan: continue detox increase fluids
[2018-10-03] MEDS: diazePAM 5 MG TABLET PO PRN (15:13)
[2018-10-03] MEDS: QUEtiapine FUMARATE 100 MG TABLET (FP) PO SCH (22:25)
[2018-10-03] MEDS: THIAMINE HCL 100 MG TABLET (FP) PO SCH (22:25)
[2018-10-03] MEDS: CYCLOBENZAPRINE HCL 10 MG TABLET (FP) PO PRN (22:26)
[2018-10-04] MEDS ORDERED: METHADONE HCL 10 MG TABLET (FOR DETOX USE ONLY) PO ONE (10:00)
[2018-10-04] MEDS: DIVALPROEX SODIUM 500 MG TABLET E.C. PO SCH ×2 (10:44→23:45)
[2018-10-04] MEDS: GABAPENTIN 400 MG CAPSULE (FP) PO SCH ×2 (10:44→23:45)
[2018-10-04] MEDS: cloNIDine HCL 0.1 MG TABLET PO SCH ×2 (10:44→23:44)
[2018-10-04] MEDS: PRENATAL VITAMINS W/ FOLIC ACID TABLET (FP) PO SCH (10:44)
[2018-10-04] MEDS: NICOTINE 21 MG/24 HOURS TOPICAL PATCH TD SCH (10:45)
--- NOTE | 2018-10-04 11:29 | PN ---
BHS Progress Note (SOAP) Subjective: i feel much better a little anxiety Objective: 10/04/18 11:29 Vital Signs Temperature 97.9 F 10/04/18 09:35 Pulse Rate 68 10/04/18 09:35 Respiratory Rate 18 10/04/18 09:35 Blood Pressure 127/77 10/04/18 09:35 O2 Sat by Pulse Oximetry (%) aaox3 ambulating no acute distress Assessment: 10/04/18 11:29 mild withdrawal sx Plan: continue detox increase fluids d/c in am
[2018-10-04] MEDS: THIAMINE HCL 100 MG TABLET (FP) PO SCH (23:45)
[2018-10-04] MEDS: QUEtiapine FUMARATE 100 MG TABLET (FP) PO SCH (23:45)
[2018-10-05] MEDS ORDERED: METHADONE HCL 5 MG TABLET (FOR DETOX USE ONLY) PO ONE (06:00)
[2018-10-05 09:05] VITALS: BP 127/78; PULSE 64; TEMP 98.2
--- NOTE | 2018-10-05 09:59 | DS ---
[facility] Detox Discharge Summary Admission Date: 09/30/18 Discharge Date: 10/05/18 - History Present History: Alcohol Dependence, Cannabis Dependence, Cocaine Dependence, Opioid Dependence - Physical Exam Results Vital Signs: Vital Signs Temperature 98.2 F 10/05/18 09:04 Pulse Rate 64 10/05/18 09:04 Respiratory Rate 18 10/05/18 09:04 Blood Pressure 127/78 10/05/18 09:04 O2 Sat by Pulse Oximetry (%) - Treatment Hospital Course: Detox Protocol Followed, Detoxed Safely, Responded well, Discharged Condition Good, Rehab Referral Accepted - Medication Discharge Medications: Ambulatory Orders Divalproex [Depakote -] 500 mg PO BID 09/01/18 Gabapentin 800 mg PO DAILY 09/01/18 - Diagnosis (1) Cocaine dependence Current Visit: Yes Status: Chronic Qualifiers: Substance use status: uncomplicated Qualified Code(s): F14.20 - Cocaine dependence, uncomplicated (2) Substance induced mood disorder Current Visit: Yes Status: Acute (3) Substance-induced sleep disorder Current Visit: Yes Status: Acute (4) Bipolar disorder Current Visit: Yes Status: Chronic (5) HTN (hypertension) Current Visit: Yes Status: Chronic Qualifiers: Hypertension type: essential hypertension Qualified Code(s): I10 - Essential (primary) hypertension (6) Alcohol dependence with uncomplicated withdrawal Current Visit: Yes Status: Chronic (7) Opioid dependence with withdrawal Current Visit: Yes Status: Chronic (8) Bipolar 1 disorder Current Visit: No Status: Chronic (9) Nicotine dependence Current Visit: Yes Status: Chronic Qualifiers: Nicotine product type: cigarettes Substance use status: uncomplicated Qualified Code(s): F17.210 - Nicotine dependence, cigarettes, uncomplicated (10) Obesity (BMI 30-39.9) Current Visit: No Status: Chronic (11) Hepatitis C virus infection resolved after antiviral drug therapy Current Visit: No Status: Resolved - AMA Did Patient Leave Against Medical Advice: No (going home; referred to [facility] outpatient rehab)
[2018-10-05] MEDS: DIVALPROEX SODIUM 500 MG TABLET E.C. PO SCH (11:12)
[2018-10-05] MEDS: GABAPENTIN 400 MG CAPSULE (FP) PO SCH (11:12)
[2018-10-05] MEDS: cloNIDine HCL 0.1 MG TABLET PO SCH (11:12)
[2018-10-05] MEDS: PRENATAL VITAMINS W/ FOLIC ACID TABLET (FP) PO SCH (11:13)
[2018-10-05] MEDS: NICOTINE 21 MG/24 HOURS TOPICAL PATCH TD SCH (11:13)
== END 2018-10-05 09:33 | disposition home or self-care (01) | DRG 773 ==
LOC: YASAS 15:46 → Y6N 18:46
PROVIDERS: ADMIT Surgery; ATTEND Surgery
PROC: HZ2ZZZZ Detoxification Services for Substance Abuse Treatment (ICD-10-PCS; principal; 2018-09-30)
DX: F11.23 Opioid dependence with withdrawal (principal); F10.230 Alcohol dependence with withdrawal, uncomplicated; F14.20 Cocaine dependence, uncomplicated; F12.20 Cannabis dependence, uncomplicated; F17.210 Nicotine dependence, cigarettes, uncomplicated; F19.24 Other psychoactive substance dependence with psychoactive substance-induced mood disorder; F19.282 Other psychoactive substance dependence with psychoactive substance-induced sleep disorder; F31.9 Bipolar disorder, unspecified; E66.9 Obesity, unspecified; Z68.34 Body mass index [BMI] 34.0-34.9, adult; Z86.19 Personal history of other infectious and parasitic diseases; Z59.0 Homelessness
CPT/HCPCS: 36415; 80053; 85027; 86593; 87389; J0735

== ENCOUNTER 2018-11-24 17:45 | Inpatient (IN) | payer OTHER ==
[2018-11-24 18:20] VITALS: BMI 35.7
--- NOTE | 2018-11-24 18:42 | HP ---
COWS - Scale Resting Pulse: 0= [place] 80 or Below Sweatin= Chills/Flushing Restless Observation: 3= Extraneous Movement Pupil Size: 1= Pupils >than Normal Bone or Joint Aches: 2= Severe Diffuse Aches Runny Nose/ Eye Tearin= Runny Nose/Eyes GI Upset > 30mins: 2= Nausea/Diarrhea Tremor Observation: 2= Slight Tremor Visible Yawning Observation: 2= >3x During Session Anxiety or Irritability: 2=Irritable/Anxious Goose Flesh Skin: 0=Smooth Skin COWS Score: 17 CIWA Score - Admission Criteria OASAS Guidelines: Admission for Medically Managed Detox: Requires at least one of the followin. CIWA greater than 12 2. Seizures within the past 24 hours 3. Delirium tremens within the past 24 hours 4. Hallucinations within the past 24 hours 5. Acute intervention needed for co occurring medical disorder 6. Acute intervention needed for co occurring psychiatric disorder 7. Severe withdrawal that cannot be handled at a lower level of care (continued vomiting, continued diarrhea, abnormal vital signs) requiring intravenous medication and/or fluids 8. Admission ROS S - HPI Chief Complaint: i need help to stop using heroin,marijuana Allergies/Adverse Reactions: Allergies Allergy/AdvReac Type Severity Reaction Status Date / Time Fish Containing Products Allergy Intermediate Swelling Verified 11/24/18 18:21 haldol AdvReac Uncoded 11/24/18 18:21 History of Present Illness: this 48 years old male with heroin and marijuana dependence,seeking detox, withdrawal symptom, last detox [facility] 09/30/18 to 10/05/18 hypertension on med bipolar disorder longest period of sobriety 14 months paln for rehab after detox Exam Limitations: No Limitations - Ebola screening Have you traveled outside of the country in the last 21 days: No (N) Have you had contact with anyone from an Ebola affected area: No Do you have a fever: No - Review of Systems Constitutional: Chills, Loss of Appetite, Malaise, Night Sweats, Changes in sleep EENT: reports: Tearing, Nose Congestion Respiratory: reports: No Symptoms reported Cardiac: reports: No Symptoms Reported GI: reports: Nausea, Poor Appetite, Vomiting : reports: No Symptoms Reported Musculoskeletal: reports: Back Pain, Muscle Pain Integumentary: reports: Dryness Neuro: reports: Headache, Tremors Endocrine: reports: No Symptoms Reported Hematology: reports: No Symptoms Reported Psychiatric: reports: No Sypmtoms Reported, Judgement Intact, Mood/Affect Appropiate, Orientated x3, Anxious, Depressed (biplar disorder) Other Systems: Reviewed and Negative Patient History - Patient Medical History Hx Anemia: No Hx Asthma: No Hx Chronic Obstructive Pulmonary Disease (COPD): No Hx Cancer: No Hx Cardiac Disorders: No Hx Congestive Heart Failure: No Hx Hypertension: Yes (non compliance,no med) Hx Hypercholesterolemia: No Hx Pacemaker: No HX Cerebrovascular Accident: No Hx Seizures: No Hx Dementia: No Hx Diabetes: No Hx Gastrointestinal Disorders: No Hx Liver Disease: No Hx Genitourinary Disorders: No Hx Sexually Transmitted Disorders: No Hx Renal Disease (ESRD): No Hx Thyroid Disease: No Hx Human Immunodeficiency Virus (HIV): No (last 07/01 negative) Hx Hepatitis C: Yes (treated with interferon) Hx Depression: No Hx Suicide Attempt: No Hx Bipolar Disorder: Yes (no med) Hx Schizophrenia: No Other Medical History: no suicidal,no homicidal - Patient Surgical History Past Surgical History: No Hx Neurologic Surgery: No Hx Cataract Extraction: No Hx Cardiac Surgery: No Hx Lung Surgery: No Hx Breast Surgery: No Hx Breast Biopsy: No Hx Abdominal Surgery: No Hx Appendectomy: No Hx Cholecystectomy: Yes (2016 open in [place]) Hx Genitourinary Surgery: No Hx Section: No Hx Orthopedic Surgery: No Other Surgical History: parathyroidectomy age 17 Anesthesia Reaction: No - PPD History Previous Implant?: Yes Documented Results: Negative w/proof Implanted On Prior [facility] Admission?: Yes Date: 10/02/18 Results: 0mm PPD to be Administered?: No - Smoking Cessation Smoking history: Current every day smoker Have you smoked in the past 12 months: Yes Aproximately how many cigarettes per day: 20 Hx Chewing Tobacco Use: No Initiated information on smoking cessation: Yes 'Breaking Loose' booklet given: 11/24/18 - Substance & Tx. History Hx Alcohol Use: No Hx Substance Use: Yes Substance Use Type: Heroin Hx Substance Use Treatment: Yes ([facility] 09/30/18 to 10/05/18) - Substances abused Heroin Substance route: Inhalation Frequency: Daily Amount used: 4 bags Age of first use: 21 Date of last use: 11/24/18 Marijuana/Hashish Substance route: Smoking Frequency: 1-2 times per week Amount used: 10$ Age of first use: 14 Date of last use: 11/24/18 Family Disease History - Family Disease History Family Disease History: CA: Mother (, ), Brother (five - (shot, suicide, cancer)), Other: Father (, 'old age'), Mother, Brother, Sister (four living, one ? reason), Son (age seven) Admission Physical Exam [facility] - Vital Signs Vital Signs: Vital Signs - 24 hr 11/24/18 18:09 Temperature 98.8 F Pulse Rate 65 Respiratory 18 Rate Blood Pressure 134/79 - Physical General Appearance: Yes: Moderate Distress, Tremorous, Irritable, Sweating, Anxious HEENTM: Yes: Normal ENT Inspection, Normocephalic, BIPIN Respiratory: Yes: Lungs Clear, Normal Breath Sounds, No Respiratory Distress Neck: Yes: Within Normal Limits, Supple, Trachea in good position (scar of neck) , Other Breast: Yes: Within Normal Limits Cardiology: Yes: Within Normal Limits, Regular Rhythm, Regular Rate, S1, S2 Abdominal: Yes: Within Normal Limits, Normal Bowel Sounds, Non Tender, Flat Genitourinary: Yes: Within Normal Limits Back: Yes: Muscle Spasm Musculoskeletal: Yes: full range of Motion, Back pain, Muscle Pain Extremities: Yes: Within Normal Limits, Normal Range of Motion, Tremors Neurological: Yes: card grader II-XII NML intact, Alert, Motor Strength 5/5 Integumentary: Yes: Dry Lymphatic: Yes: Within Normal Limits - Diagnostic (1) Opioid dependence with withdrawal Current Visit: No Status: Chronic (2) Bipolar disorder Current Visit: No Status: Chronic (3) HTN (hypertension) Current Visit: No Status: Chronic Qualifiers: Hypertension type: essential hypertension Qualified Code(s): I10 - Essential (primary) hypertension (4) Nicotine dependence Current Visit: No Status: Chronic Qualifiers: Nicotine product type: cigarettes Substance use status: uncomplicated Qualified Code(s): F17.210 - Nicotine dependence, cigarettes, uncomplicated (5) Hepatitis C virus infection resolved after antiviral drug therapy Current Visit: No Status: Resolved (6) Cannabis abuse Current Visit: Yes Status: Acute (7) History of cholecystectomy Current Visit: Yes Status: Acute (8) History of parathyroid surgery Current Visit: Yes Status: Acute Cleared for Admission [facility] - Detox or Rehab [facility] Level of Care: Medically Managed Detox Regimen/Protocol: Methadone Breathalyzer - Breathalyzer Breathalyzer: 0 Urine Drug Screen - Test Device Lot number: [id number] Expiration date: 07/13/20 - Control Is test valid?: Yes - Results Drug screen NEGATIVE: No Urine drug screen results: THC-Marijuana, MOP-Opiates, BZO-Benzodiazepines Inpatient Rehab Admission - Rehab Decision to Admit Inpatient rehab admission?: No
[2018-11-24] MEDS ORDERED: BISMUTH SUBSALICYLATE 524 MG/30 ML UD PO PRN (18:53)
[2018-11-24] MEDS ORDERED: IBUPROFEN 400 MG TABLET (FP) PO PRN (18:53)
[2018-11-24] MEDS ORDERED: ACETAMINOPHEN 325 MG TABLET (FP) PO PRN (18:53)
[2018-11-24] MEDS ORDERED: MAGNESIUM HYDROX 2400MG/30ML ORAL SUSPENSION 30 ML CUP PO PRN (18:53)
[2018-11-24] MEDS ORDERED: MENTHOL/PHENOL 1 EACH UD MM PRN (18:53)
[2018-11-24] MEDS ORDERED: hydrOXYzine PAMOATE 25 MG CAPSULE (FP) PO PRN (18:53)
[2018-11-24] MEDS ORDERED: MAGNESIUM CITRATE 300 ML BOTTLE PO PRN (18:53)
[2018-11-24] MEDS ORDERED: MAG HYDROX/AL HYDROX/SIMETH 30 ML UNIT-DOSE CUP PO PRN (18:53)
[2018-11-24] MEDS ORDERED: cloNIDine HCL 0.1 MG TABLET PO PRN (18:53)
[2018-11-24] MEDS ORDERED: METHADONE HCL 10 MG TABLET (FOR DETOX USE ONLY) PO ONE ×3 (19:15→23:00)
[2018-11-24] MEDS ORDERED: METHADONE HCL 5 MG TABLET (FOR DETOX USE ONLY) ONE ×2 (20:27)
[2018-11-24] MEDS: diazePAM 5 MG TABLET PO PRN (20:28)
[2018-11-24] MEDS: NICOTINE 21 MG/24 HOURS TOPICAL PATCH TD SCH (20:34)
[2018-11-24] MEDS: MELATONIN 5 MG TABLETS PO PRN (22:39)
[2018-11-24] MEDS: THIAMINE HCL 100 MG TABLET (FP) PO SCH (22:39)
[2018-11-25] MEDS: diazePAM 5 MG TABLET PO PRN ×2 (07:27→14:29)
[2018-11-25] MEDS ORDERED: METHADONE HCL 10 MG TABLET (FOR DETOX USE ONLY) PO ONE (10:00)
[2018-11-25] MEDS: NICOTINE 21 MG/24 HOURS TOPICAL PATCH TD SCH (10:12)
[2018-11-25] MEDS: PRENATAL VITAMINS W/ FOLIC ACID TABLET (FP) PO SCH (10:12)
[2018-11-25] MEDS: HYDROCHLOROTHIAZIDE 12.5 MG CAPSULE (FP) PO SCH (10:12)
[2018-11-25 10:21] LABS: ALBUMIN 3.8 g/dl (3.4-5.0); ALK PHOS 65 U/L (45-117); ANION GAP 4 MMOL/L (8-16); BILIRUBIN,TOTAL 0.7 mg/dL (0.2-1); BLOOD UREA NITROGEN 27 mg/dL (7-18); CALCIUM 8.6 mg/dL (8.5-10.1); CHLORIDE 103 mmol/L (98-107); CO2 31 mmol/L (21-32); CREATININE 1.3 mg/dL (0.55-1.3); GLUCOSE,RANDOM 86 mg/dL (74-106); POTASSIUM 4.5 mmol/L (3.5-5.1); SGOT/AST 20 U/L (15-37); SGPT/ALT 24 U/L (13-61); SODIUM 138 mmol/L (136-145); TOT PROT 7.2 g/dl (6.4-8.2)
[2018-11-25 10:34] LABS: HEMATOCRIT 43.8 % (35.4-49); HEMOGLOBIN 14.4 GM/dL (11.7-16.9); MCHC 32.9 g/dl (32.0-35.9); MEAN PLT VOLUME 8.1 fl (7.5-11.1); PLATELET COUNT 229 K/MM3 (134-434); RBC 5.34 M/mm3 (4.00-5.60); RDW 15.3 % (11.9-15.9); WHITE BLOOD COUNT 6.7 K/mm3 (4.0-10.0)
[2018-11-25 10:42] LABS: PH,URINE 6.5 (5.0-8.0); URINE APPEARANCE CLEAR; URINE BILIRUBIN NEGATIVE (NEGATIVE); URINE COLOR YELLOW; URINE GLUCOSE (UA) NEGATIVE (NEGATIVE); URINE KETONE NEGATIVE (NEGATIVE); URINE LEUK ESTERASE NEGATIVE (NEGATIVE); URINE NITRITE NEGATIVE (NEGATIVE); URINE PROTEIN TRACE (NEGATIVE); URINE UROBILINOGEN 0.2 mg/dL (0.2-1.0)
--- NOTE | 2018-11-25 11:22 | PN ---
BHS COWS - Scale Resting Pulse: 0= ID 80 or Below Sweatin= No chills or Flushing Restless Observation: 1= Difficult to Sit Still Pupil Size: 2= Moderately Dilated Bone or Joint Aches: 1= Mild Discomfort Runny Nose/ Eye Tearin= Nasal Congestion GI Upset > 30mins: 0= None Tremor Observation of Outstretched Hands: 0= None Yawning Observation: 0= None Anxiety or Irritability: 1=Feels Anxious/Irritable Goose Flesh Skin: 0=Smooth Skin COWS Score: 6 BHS Progress Note (SOAP) Subjective: PATIENT C/O MILD BODY ACHES, ANXIETY, RESTLESSNESS. Objective: 11/25/18 11:21 PE: ALERT AND ORIENTED X 3 SKIN WARM AND DRY PUPILS MODERATELY DILATED EXT FULL ROM, NO VISIBLE TREMORS AMB AD PIETRO MILD ANXIETY/RESTLESSNESS, PACING IN HALLWAY Vital Signs Temperature 97.7 F 11/25/18 09:21 Pulse Rate 77 11/25/18 09:21 Respiratory Rate 16 11/25/18 09:21 Blood Pressure 121/69 11/25/18 09:21 O2 Sat by Pulse Oximetry (%) Laboratory Results - last 24 hr 11/25/18 11/25/18 11/25/18 07:15 07:15 07:15 WBC 6.7 RBC 5.34 Hgb 14.4 Hct 43.8 MCV 82.0 MCH 27.0 MCHC 32.9 RDW 15.3 Plt Count 229 MPV 8.1 Sodium 138 Potassium 4.5 Chloride 103 Carbon Dioxide 31 Anion Gap 4 L BUN 27 H Creatinine 1.3 Creat Clearance w eGFR 58.67 Random Glucose 86 Calcium 8.6 Total Bilirubin 0.7 AST 20 ALT 24 Alkaline Phosphatase 65 Total Protein 7.2 Albumin 3.8 Urine Color Urine Appearance Urine pH Ur Specific [place] Urine Protein Urine Glucose (UA) Urine Ketones Urine Blood Urine Nitrite Urine Bilirubin Urine Urobilinogen Ur Leukocyte Esterase RPR Titer Nonreactive 11/25/18 08:10 WBC RBC Hgb Hct MCV MCH MCHC RDW Plt Count MPV Sodium Potassium Chloride Carbon Dioxide Anion Gap BUN Creatinine Creat Clearance w eGFR Random Glucose Calcium Total Bilirubin AST ALT Alkaline Phosphatase Total Protein Albumin Urine Color Yellow Urine Appearance Clear Urine pH 6.5 Ur Specific [place] 1.019 Urine Protein Trace Urine Glucose (UA) Negative Urine Ketones Negative Urine Blood Negative Urine Nitrite Negative Urine Bilirubin Negative Urine Urobilinogen 0.2 Ur Leukocyte Esterase Negative RPR Titer Assessment: 11/25/18 11:22 WITHDRAWAL SX Plan: CONTINUE DETOX ENCOURAGE FLUIDS CONTINUE TO MONITOR CLINICALLY
[2018-11-25] MEDS: ACETAMINOPHEN 325 MG TABLET (FP) PO PRN (16:43)
[2018-11-25] MEDS: MELATONIN 5 MG TABLETS PO PRN (22:05)
[2018-11-25] MEDS: THIAMINE HCL 100 MG TABLET (FP) PO SCH (22:19)
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
[2018-11-26] MEDS ORDERED: METHADONE HCL 10 MG TABLET (FOR DETOX USE ONLY) PO ONE (10:00)
[2018-11-26] MEDS: NICOTINE 21 MG/24 HOURS TOPICAL PATCH TD SCH (10:02)
[2018-11-26] MEDS: PRENATAL VITAMINS W/ FOLIC ACID TABLET (FP) PO SCH (10:03)
[2018-11-26] MEDS: HYDROCHLOROTHIAZIDE 12.5 MG CAPSULE (FP) PO SCH (10:03)
[2018-11-26] MEDS: DIVALPROEX SODIUM 500 MG TABLET E.C. PO SCH ×2 (10:04→22:04)
[2018-11-26] MEDS: risperiDONE 2 MG TABLET PO SCH ×2 (11:24→22:03)
[2018-11-26] MEDS: GABAPENTIN 100 MG CAPSULE (FP) PO SCH ×2 (13:05→22:04)
--- NOTE | 2018-11-26 13:38 | PN ---
BHS COWS - Scale Resting Pulse: 1= [place] 81-100 Sweatin= No chills or Flushing Restless Observation: 1= Difficult to Sit Still Pupil Size: 0= Normal to Room Light Bone or Joint Aches: 2= Severe Diffuse Aches Runny Nose/ Eye Tearin= Nasal Congestion GI Upset > 30mins: 0= None Tremor Observation of Outstretched Hands: 0= None Yawning Observation: 1= 1-2x During Session Anxiety or Irritability: 2=Irritable/Anxious Goose Flesh Skin: 3=Piloerection COWS Score: 11 BHS Progress Note (SOAP) Subjective: Body Aches, Anxious, Interrupted Sleep. Objective: PATIENT A & O X 3, OBSERVED AMBULATING ON UNIT. IN NO ACUTE DISTRESS. 11/26/18 13:36 Vital Signs Temperature 99.1 F 11/26/18 09:46 Pulse Rate 92 H 11/26/18 09:46 Respiratory Rate 18 11/26/18 09:46 Blood Pressure 137/69 11/26/18 09:46 O2 Sat by Pulse Oximetry (%) Laboratory Tests 11/25/18 11/25/18 11/25/18 07:15 07:15 07:15 WBC 6.7 RBC 5.34 Hgb 14.4 Hct 43.8 MCV 82.0 MCH 27.0 MCHC 32.9 RDW 15.3 Plt Count 229 MPV 8.1 Sodium 138 Potassium 4.5 Chloride 103 Carbon Dioxide 31 Anion Gap 4 L BUN 27 H Creatinine 1.3 Creat Clearance w eGFR 58.67 Random Glucose 86 Calcium 8.6 Total Bilirubin 0.7 AST 20 ALT 24 Alkaline Phosphatase 65 Total Protein 7.2 Albumin 3.8 Urine Color Urine Appearance Urine pH Ur Specific [place] Urine Protein Urine Glucose (UA) Urine Ketones Urine Blood Urine Nitrite Urine Bilirubin Urine Urobilinogen Ur Leukocyte Esterase RPR Titer Nonreactive 11/25/18 08:10 WBC RBC Hgb Hct MCV MCH MCHC RDW Plt Count MPV Sodium Potassium Chloride Carbon Dioxide Anion Gap BUN Creatinine Creat Clearance w eGFR Random Glucose Calcium Total Bilirubin AST ALT Alkaline Phosphatase Total Protein Albumin Urine Color Yellow Urine Appearance Clear Urine pH 6.5 Ur Specific [place] 1.019 Urine Protein Trace Urine Glucose (UA) Negative Urine Ketones Negative Urine Blood Negative Urine Nitrite Negative Urine Bilirubin Negative Urine Urobilinogen 0.2 Ur Leukocyte Esterase Negative RPR Titer LABS NOTED. Assessment: 11/26/18 13:37 WITHDRAWAL SYMPTOMS. Plan: CONTINUE DETOX. INCREASE DAILY PO FLUID INTAKE.
[2018-11-26] MEDS: METHOCARBAMOL 500 MG TABLET PO PRN (14:54)
[2018-11-26] MEDS: THIAMINE HCL 100 MG TABLET (FP) PO SCH (22:03)
[2018-11-26] MEDS: diazePAM 5 MG TABLET PO PRN (22:03)
[2018-11-26] MEDS: traZODone HCL 100 MG TABLET (FP) PO SCH (22:04)
[2018-11-27] MEDS: diazePAM 5 MG TABLET PO PRN (03:17)
[2018-11-27] MEDS: GABAPENTIN 100 MG CAPSULE (FP) PO SCH ×3 (05:31→22:14)
[2018-11-27] MEDS: METHOCARBAMOL 500 MG TABLET PO PRN (07:44)
[2018-11-27] MEDS ORDERED: METHADONE HCL 10 MG TABLET (FOR DETOX USE ONLY) PO ONE (10:00)
[2018-11-27] MEDS: NICOTINE 21 MG/24 HOURS TOPICAL PATCH TD SCH (10:03)
[2018-11-27] MEDS: PRENATAL VITAMINS W/ FOLIC ACID TABLET (FP) PO SCH (10:03)
[2018-11-27] MEDS: risperiDONE 2 MG TABLET PO SCH ×2 (10:03→22:14)
[2018-11-27] MEDS: HYDROCHLOROTHIAZIDE 12.5 MG CAPSULE (FP) PO SCH (10:04)
[2018-11-27] MEDS: DIVALPROEX SODIUM 500 MG TABLET E.C. PO SCH ×2 (10:04→22:14)
[2018-11-27] MEDS: NICOTINE POLACRILEX 2 MG GUM BUC PRN ×2 (12:05→22:15)
--- NOTE | 2018-11-27 12:12 | PN ---
BHS Progress Note (SOAP) Subjective: Body Aches, Interrupted Sleep. Objective: PATIENT A & O X 3, OBSERVED AMBULATING ON UNIT. IN NO ACUTE DISTRESS. 11/27/18 12:09 Vital Signs Temperature 97.7 F 11/27/18 09:13 Pulse Rate 93 H 11/27/18 09:13 Respiratory Rate 18 11/27/18 09:13 Blood Pressure 125/79 11/27/18 09:13 O2 Sat by Pulse Oximetry (%) Laboratory Tests 11/25/18 11/25/18 11/25/18 07:15 07:15 07:15 WBC 6.7 RBC 5.34 Hgb 14.4 Hct 43.8 MCV 82.0 MCH 27.0 MCHC 32.9 RDW 15.3 Plt Count 229 MPV 8.1 Sodium 138 Potassium 4.5 Chloride 103 Carbon Dioxide 31 Anion Gap 4 L BUN 27 H Creatinine 1.3 Creat Clearance w eGFR 58.67 Random Glucose 86 Calcium 8.6 Total Bilirubin 0.7 AST 20 ALT 24 Alkaline Phosphatase 65 Total Protein 7.2 Albumin 3.8 Urine Color Urine Appearance Urine pH Ur Specific [place] Urine Protein Urine Glucose (UA) Urine Ketones Urine Blood Urine Nitrite Urine Bilirubin Urine Urobilinogen Ur Leukocyte Esterase RPR Titer Nonreactive 11/25/18 08:10 WBC RBC Hgb Hct MCV MCH MCHC RDW Plt Count MPV Sodium Potassium Chloride Carbon Dioxide Anion Gap BUN Creatinine Creat Clearance w eGFR Random Glucose Calcium Total Bilirubin AST ALT Alkaline Phosphatase Total Protein Albumin Urine Color Yellow Urine Appearance Clear Urine pH 6.5 Ur Specific [place] 1.019 Urine Protein Trace Urine Glucose (UA) Negative Urine Ketones Negative Urine Blood Negative Urine Nitrite Negative Urine Bilirubin Negative Urine Urobilinogen 0.2 Ur Leukocyte Esterase Negative RPR Titer LABS NOTED. Assessment: 11/27/18 12:10 WITHDRAWAL SYMPTOMS. Plan: CONTINUE DETOX. INCREASE DAILY PO FLUID / WATER INTAKE. PATIENT SCHEDULED FOR D/C TOMORROW.
--- NOTE | 2018-11-27 12:25 | PN ---
S Progress Note Note: Patient is scheduled for discharge tomorrow. Scripts for 30 days supply of medications(Gabapentin, Depakote, Risperdal, Trazadone) will be electronically transmitted to [facility] at [address] [place] [id number]
[2018-11-27] MEDS: ACETAMINOPHEN 325 MG TABLET (FP) PO PRN (18:24)
[2018-11-27] MEDS: traZODone HCL 100 MG TABLET (FP) PO SCH (22:14)
[2018-11-27] MEDS: THIAMINE HCL 100 MG TABLET (FP) PO SCH (22:15)
[2018-11-28] MEDS ORDERED: METHADONE HCL 5 MG TABLET (FOR DETOX USE ONLY) PO ONE (06:00)
[2018-11-28] MEDS: GABAPENTIN 100 MG CAPSULE (FP) PO SCH (06:01)
--- NOTE | 2018-11-28 08:09 | DS ---
[facility] Detox Discharge Summary Admission Date: 11/24/18 Discharge Date: 11/28/18 - History Present History: Cannabis Dependence, Opioid Dependence - Physical Exam Results Vital Signs: Vital Signs Temperature 97.7 F 11/28/18 07:30 Pulse Rate 92 H 11/28/18 07:30 Respiratory Rate 18 11/28/18 07:30 Blood Pressure 162/92 11/28/18 07:30 O2 Sat by Pulse Oximetry (%) - Treatment Hospital Course: Detox Protocol Followed, Detoxed Safely, Responded well, Discharged Condition Good, Rehab Referral Accepted - Medication Discharge Medications: Ambulatory Orders Gabapentin 800 mg PO DAILY 09/01/18 Risperidone [Risperdal] 3 mg PO BID 11/24/18 Divalproex [Depakote -] 500 mg PO BID #60 tablet.ec 11/27/18 Gabapentin [Neurontin -] 100 mg PO TID #90 capsule 11/27/18 Hydrochlorothiazide [Hctz -] 12.5 mg PO DAILY 30 Days #30 cap 11/27/18 Risperidone [Risperdal -] 2 mg PO BID #60 tablet 11/27/18 traZODone HCL [Trazodone HCl] 100 mg PO HS #30 tablet 11/27/18 - AMA Did Patient Leave Against Medical Advice: No (referred to [facility] program)
[2018-11-28] MEDS: NICOTINE 21 MG/24 HOURS TOPICAL PATCH TD SCH (09:18)
[2018-11-28] MEDS: HYDROCHLOROTHIAZIDE 12.5 MG CAPSULE (FP) PO SCH (09:20)
[2018-11-28] MEDS: PRENATAL VITAMINS W/ FOLIC ACID TABLET (FP) PO SCH (09:20)
[2018-11-28] MEDS: risperiDONE 2 MG TABLET PO SCH (09:20)
[2018-11-28] MEDS: DIVALPROEX SODIUM 500 MG TABLET E.C. PO SCH (09:20)
[2018-11-28 09:32] VITALS: BP 137/67; PULSE 110; TEMP 98.1
== END 2018-11-28 09:40 | disposition home or self-care (01) | DRG 773 ==
LOC: YASAS 17:45 → Y6N 19:08
PROVIDERS: ADMIT Surgery; ATTEND Surgery
PROC: HZ2ZZZZ Detoxification Services for Substance Abuse Treatment (ICD-10-PCS; principal; 2018-11-24)
DX: F11.23 Opioid dependence with withdrawal (principal); F12.20 Cannabis dependence, uncomplicated; F17.210 Nicotine dependence, cigarettes, uncomplicated; F19.280 Other psychoactive substance dependence with psychoactive substance-induced anxiety disorder; F19.282 Other psychoactive substance dependence with psychoactive substance-induced sleep disorder; F31.9 Bipolar disorder, unspecified; I10 Essential (primary) hypertension; E66.9 Obesity, unspecified; Z68.35 Body mass index [BMI] 35.0-35.9, adult; Z86.19 Personal history of other infectious and parasitic diseases; Z90.49 Acquired absence of other specified parts of digestive tract; Z98.890 Other specified postprocedural states; Z59.0 Homelessness
CPT/HCPCS: 36415; 80053; 81003; 85027; 86593